=== PATIENT | male | born 2000 | race American Indian/Alaskan Native ===

== ENCOUNTER 2019-05-06 22:39 | Emergency (ER) | payer OTHER ==
[2019-05-06 23:19] VITALS: BP 157/50
[2019-05-06] MEDS ORDERED: ULTRAM PO ONE (23:34)
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
== END 2019-05-07 00:48 | disposition home or self-care (01) ==
LOC: ED 22:39
DX: R07.89 Other chest pain (principal); R07.81 Pleurodynia; M54.2 Cervicalgia; V49.49XA Driver injured in collision with other motor vehicles in traffic accident, initial encounter; Y93.89 Activity, other specified; Y92.410 Unspecified street and highway as the place of occurrence of the external cause; Y99.8 Other external cause status